=== PATIENT | female | born 1975 | race African-American/Black ===

== ENCOUNTER 2021-04-05 18:34 | Emergency (ER) | payer MEDICAID ==
[~2021-04-05] VITALS: Ht 170.2 cm; Wt 49.4 kg
[2021-04-05] MEDS ORDERED: traMADol HCL 50 MG TAB PO ONE (19:15)
[2021-04-05 19:38] LABS: Basophils # (auto) 0 10 ^3/uL (0-0.2); Eosinophils # (auto) 0.1 10 ^3/uL (0-0.8); Hemoglobin 12.3 g/dL (12.2-16.2); Lymphocytes # (auto) 1.1 10 ^3/uL (0.4-5.4); Mean Corpuscular Hgb Conc. 35.1 g/dL (32.0-36.0); Monocytes # (auto) 0.4 10 ^3/uL (0-1.3); Nucleated Red Blood Cells % 0.1 %
[2021-04-05 19:45] LABS: Basophils % (auto) 0.4 % (0.0-2.0); Eosinophils % (auto) 1.5 % (0.0-7.0); Hematocrit 35.1 % (36.0-46.0); Lymphocytes % (auto) 25.9 % (10.0-50.0); Mean Corpuscular Hemoglobin 35.2 pg (28.0-32.0); Mean Corpuscular Volume 100.2 fL (80.0-100.0); Monocytes % (auto) 9.7 % (0.0-12.0); Neutrophils # (auto) 2.6 10 ^3/uL (1.6-8.6); Neutrophils % (auto) 62.5 % (37.0-80.0); Red Cell Distribution Width 12.4 % (11.8-14.3); White Blood Cell 4.2 10^3/uL (4.4-10.8)
[2021-04-05 19:50] LABS: Potassium 3.3 mmol/L (3.5-5.1)
[2021-04-05 19:55] LABS: Albumin 3.2 g/dL (3.4-5.0); BUN/Creatinine Ratio 9.8; Calcium 8.2 mg/dL (8.5-10.1)
[2021-04-05 20:00] LABS: Bilirubin, Total 0.5 mg/dL (0.2-1.0); Total Protein 7.3 g/dL (6.4-8.2)
[2021-04-05 20:05] VITALS: BP 109/67
[2021-04-05] MEDS ORDERED: HYDROcodone-ACET 10/325MG TAB PO ONE (20:45)
[2021-04-05] MEDS ORDERED: AZIT250T9 PO (21:30)
== END 2021-04-05 21:32 | disposition home or self-care (01) ==
LOC: ER 18:36
DX: R07.89 Other chest pain (principal); F17.210 Nicotine dependence, cigarettes, uncomplicated; Z88.8 Allergy status to other drugs, medicaments and biological substances
CPT/HCPCS: 36415; 71046; 80053; 84484; 85025; 93005

== ENCOUNTER 2021-07-05 02:21 | Emergency (ER) | payer MEDICAID ==
[~2021-07-05] VITALS: Ht 170.2 cm; Wt 52.6 kg
[~2021-07-05 02:21] MED LIST: AZIT250T9 PO
[2021-07-05] MEDS ORDERED: MORPHINE SULFATE 4 MG/ML SYR/VIAL IM ONE (03:00)
[2021-07-05] MEDS ORDERED: SODIUM CHLORIDE 0.9% 500 ML IV ONE (08:45)
[2021-07-05] MEDS ORDERED: SODIUM CHLORIDE 0.9% 1,000 ML IV ONE (08:45)
[2021-07-05 09:15] LABS: Basophils # (auto) 0 10 ^3/uL (0-0.2); Eosinophils # (auto) 0 10 ^3/uL (0-0.8); Lymphocytes # (auto) 0.4 10 ^3/uL (0.4-5.4); Mean Corpuscular Hgb Conc. 35.4 g/dL (32.0-36.0); Monocytes # (auto) 0.2 10 ^3/uL (0-1.3); Nucleated Red Blood Cells % 0.1 %; Red Cell Distribution Width 13.6 % (11.8-14.3); White Blood Cell 2.6 10^3/uL (4.4-10.8)
[2021-07-05 09:19] LABS: Basophils % (auto) 0.6 % (0.0-2.0); Hematocrit 37.6 % (36.0-46.0); Hemoglobin 13.3 g/dL (12.2-16.2); Lymphocytes % (auto) 13.6 % (10.0-50.0); Mean Corpuscular Hemoglobin 35.2 pg (28.0-32.0); Mean Corpuscular Volume 99.6 fL (80.0-100.0); Neutrophils % (auto) 76.8 % (37.0-80.0); Red Blood Cells 3.77 10^6/uL (4.0-5.20)
[2021-07-05 09:32] LABS: Albumin 3.4 g/dL (3.4-5.0); Calcium 7.1 mg/dL (8.5-10.1); Potassium 3.3 mmol/L (3.5-5.1)
[2021-07-05 09:37] LABS: Bilirubin, Total 0.4 mg/dL (0.2-1.0); Total Protein 7.5 g/dL (6.4-8.2)
[2021-07-05] MEDS ORDERED: ONDANSETRON HCL 4 MG/2 ML VIAL IV ONE ×2 (10:45→12:15)
[2021-07-05] MEDS ORDERED: MORPHINE SULFATE 4 MG/ML SYR/VIAL IV ONE (10:45)
[2021-07-05 11:24] LABS: Urine Bacteria NONE SEEN /hpf (None Seen); Urine Blood TRACE /uL (Negative); Urine Mucus FEW (None Seen); Urine Specific Gravity 1.025 (1.001-1.035); Urine WBC 4 /hpf (0 - 5)
[2021-07-05] MEDS ORDERED: HYDROmorphone HCL 2 MG/ML VL/or syr IV ONE (12:15)
[2021-07-05] MEDS ORDERED: POTASSIUM EFFERVESENT TAB 25 MEQ PO ONE (12:15)
[2021-07-05] MEDS ORDERED: CIPR-173 PO (15:45)
[2021-07-05] MEDS ORDERED: TRAM50TA2 PO (15:45)
[2021-07-05 16:07] VITALS: BP 105/68
== END 2021-07-05 16:08 | disposition home or self-care (01) ==
LOC: ER 02:21
DX: G57.93 Unspecified mononeuropathy of bilateral lower limbs (principal); M06.8A Other specified rheumatoid arthritis, other specified site; M32.9 Systemic lupus erythematosus, unspecified; N39.0 Urinary tract infection, site not specified; E87.6 Hypokalemia; F17.210 Nicotine dependence, cigarettes, uncomplicated; F12.10 Cannabis abuse, uncomplicated; Z88.8 Allergy status to other drugs, medicaments and biological substances
CPT/HCPCS: 36415; 72131; 80053; 81001; 83735; 85025; 85652; 96361; 96372; 96374; 96375; 99285; J2270; J2405; J7030; J7040

== ENCOUNTER 2023-04-08 21:36 | Emergency (ER) | payer MEDICAID ==
[~2023-04-08] VITALS: Ht 177.8 cm; Wt 50.0 kg
[~2023-04-08 21:36] MED LIST changes: +AZIT-43 PO; -AZIT250T9 PO; +CIPR-173 PO; +TRAM50TA2 PO
[2023-04-08 21:40] VITALS: BP 123/72; RESP 32; O2SAT 100
[2023-04-08 21:41] VITALS: PULSE 97
[2023-04-08] MEDS ORDERED: NITROGLYCERIN 0.4 MG SL TAB SL ONE (22:00)
[2023-04-08 22:03] LABS: Basophils # (auto) 0.1 10 ^3/uL (0-0.2); Basophils % (auto) 0.9 % (0.0-2.0); Eosinophils # (auto) 0.1 10 ^3/uL (0-0.8); Eosinophils % (auto) 1.8 % (0.0-7.0); Hemoglobin 13.7 g/dL (12.2-16.2); Lymphocytes # (auto) 1.3 10 ^3/uL (0.4-5.4); Lymphocytes % (auto) 20.7 % (10.0-50.0); Mean Corpuscular Hemoglobin 33.6 pg (28.0-32.0); Mean Corpuscular Hgb Conc. 34.2 g/dL (32.0-36.0); Mean Corpuscular Volume 98.2 fL (80.0-100.0); Monocytes # (auto) 0.6 10 ^3/uL (0-1.3); Monocytes % (auto) 8.7 % (0.0-12.0); Neutrophils # (auto) 4.3 10 ^3/uL (1.6-8.6); Neutrophils % (auto) 67.9 % (37.0-80.0); Red Blood Cells 4.08 10^6/uL (4.0-5.20); Red Cell Distribution Width 12.1 % (11.8-14.3); White Blood Cell 6.4 10^3/uL (4.4-10.8)
[2023-04-08 22:19] LABS: Alanine Aminotransferase 21 U/L (7-40); Albumin 4.4 g/dL (3.2-4.8); Alkaline Phosphatase 67 U/L (46-116); Anion Gap 10 (5-15); Aspartate Aminotransferase 24 U/L (13-40); BUN/Creatinine Ratio 9.4 (10.0-20.0); Bilirubin, Total 0.6 mg/dL (0.2-1.0); Blood Alcohol 85.5 mg/dL (<10); Blood Urea Nitrogen 6 mg/dL (9-23); Calcium 9.3 mg/dL (8.5-10.1); Carbon Dioxide 21 mmol/L (20-30); Chloride 107 mmol/L (98-107); Glucose 92 mg/dL (74-106); Potassium 3.4 mmol/L (3.5-5.1); Sodium 138 mmol/L (136-145); Total Protein 8.4 g/dL (5.7-8.2)
[2023-04-08 22:36] LABS: Lipase 33 U/L (12-53)
== END 2023-04-08 23:05 | disposition left against medical advice (07) ==
LOC: ER 21:36 → EDBD 21:36 → ER 23:05
DX: R07.89 Other chest pain (principal); Z53.21 Procedure and treatment not carried out due to patient leaving prior to being seen by health care provider
CPT/HCPCS: 36415; 80053; 80320; 83690; 84484; 85025; 93005